=== PATIENT | female | born 1970 | race Caucasian/White ===

== ENCOUNTER 2020-07-02 16:16 | Emergency (ER) | payer OTHER ==
[~2020-07-02] VITALS: Ht 162.6 cm; Wt 90.7 kg
--- NOTE | ~2020-07-02 | EMS ---
[place] [address] EMS Patient Care Report Name: JAQUAN VAZQUEZ [id number] Admission: 07/02/20 Attend Phys: Discharge: 07/02/20 Date of : 70 Report #: [id number] THIS REPORT FOR: //name// Report Transmitted: 07/05/2020 20:19 EMS Care Summary [facility] Incident [id number] @ 07/02/2020 15:26 Incident Location [address] [place] [address] Patient JAQUAN VAZQUEZ Female, 50 Years 1970 Patient Address [address] [place] [address] Patient History Seizures, Patient Allergies No known allergies, Patient Medications Gabapentin, Meloxicam, Chief Complaint Altered mental status Disposition Transported [place] Dispatch Reason Stroke/CVA Trans[place] [facility] [place] N[place] Dispatch: [facility] was dispatched for a female patient with difficulty speaking. Med 1 copied tones and went en route emergent. Chief Complaint: Med 1 arrived on scene to find the [place] [address] EMS Patient Care Report Name: AJQUAN VAZQUEZ [facility] [id number] Admission: 07/02/20 Attend Phys: Discharge: 07/02/20 Date of : 70 Report #: [id number] bed. Patient is alert and does not appear to be in any distress or discomfort. Patient is alert when stimulated by EMS, but is unable to follow commands. Patient is incontinent to urine and bowel. Patient is unable to sit up without assistance and is unable to sinker winder using her right hand. Patient has slight right sided facial droop. Positive [place] and MEND exam. History of present illness/MISSY: Family states the patient has a history of seizures and they ???just thought the patient was postictal.??? Family states the patient also has a history of drug use. No drugs or alcohol were found around the patient while on scene. Patients family states the last known well was approx. at 10/11 P.M. the night before. Assessment: Airway: Clear, patent, and self maintained. Breathing: Clear, and equal bilaterally. Non labored respirations. Circulation: Skin is pink, warm, and dry. Strong radial pulses. Disability: A&OX0, GCS 9. Alert to painful/verbal stimuli. Exposures: No life threats were found. See ???assessments??? tab for further. Reason for ambulance: Patient was found by family, difficulty talking. Requesting EMS treatment and transport to [facility]. Treatments: ALS assessment. 12 lead EKG showing normal sinus rhythm. Two IV attempts, unsuccessful. 1mg Narcan IN. IO left tibia successful. 40mg Lidocaine IO. ETCO2 nasal cannula showing non obstructed waveforms. Vitals monitored throughout transport. See ???flowchart??? for further. Summary: With the assistance of EMS, and fire the patient was placed onto the cot, secured in place and placed into the ambulance for transport. The patient was placed onto the monitor and IV???s were attempted. The patient was placed onto ETCO2 nasal cannula at 2 liters. Med 1 went en route emergent to [facility]. The patient was given 1mg Narcan IN with no patient change. An IO was performed in the left tibia with 40mg Lidocaine, patient had a slight grimace to the flushing of the IO. Throughout transport, the patient became only responsive to painful stimuli. Patient maintained a patent and self maintained airway. Radio report was given and a stroke activation was made with no further questions or orders received. Med 1 arrived at destination where the patient was taken to CT and was sheet transferred onto the scan. Report was given and signatures and paperwork were received. Med 1 returned back in service. Initial Vitals @15:56P: 65,R: 18,EtCO2: 24,SpO2: 98, @16:03P: 64,R: 21,BP: 140/68,EtCO2: 19,SpO2: 99, @16:13P: 66,R: 23,EtCO2: 26,SpO2: 99, [place] [address] EMS Patient Care Report Name: JAQUAN VAZQUEZ Room: [facility] Flores#: [id number] Admission: 07/02/20 Attend Phys: Discharge: 07/02/20 Date of : 70 Report #: [id number] @16:18P: 69,R: 20,BP: 139/100,EtCO2: 26,SpO2: 98, @16:08P: 65,R: 21,BP: 139/97,EtCO2: 23,SpO2: 100, @16:23R: 20,GCS: 8,EtCO2: 25, @15:49P: 65,BP: 141/89,GCS: 8,SpO2: 96, @15:32R: 18,BP: 150/84,GCS: 9,SpO2: 98,Revised Trauma: 11, Assessments @15:32MENTAL:Confused,Other,SKIN:HEENT:Head/Face: Facial Droop,LUNG SOUNDS:ABDOMEN:PELVIS//GI:Pelvis GUOther,Incontinence,EXTREMITIES:Right Arm: Weakness,Right Leg: Weakness,Capillary Refill: Right Upper: < 2 Sec,PULSE:Radial: 2+ Normal,NEURO:Facial Droop,Other,Weakness Right-Sided,@15:55MENTAL:Confused,Other,SKIN:HEENT:Head/Face: Facial Droop,LUNG SOUNDS:ABDOMEN:PELVIS//GI:EXTREMITIES:Right Arm: Weakness,Right Leg: Weakness,Capillary Refill: Right Upper: < 2 Sec,PULSE:Radial: 2+ Normal,NEURO:Facial Droop,Other,Weakness Right-Sided, Impression Overdose - Unspecified Procedures @15:4912-Lead ECGResponse: UnchangedSucceeded@16:00Narcan - 1 Milligrams (mg) - IntranasalResponse: Unchanged@15:50Saline Lock 0cc (20 ga) Site: Antecubital-LeftResponse: UnchangedFailed@15:53Saline Lock 0cc (20 ga) Site: Antecubital-RightResponse: UnchangedFailed@16:05Normal Saline (.9% NaCl) 100cc (EZ-IO (Blue 25mm)) Site: SM-Ioumk-Kxma ProximalResponse: UnchangedSucceeded@15:32ALS AssessmentResponse: UnchangedSucceeded@16:05Lidocaine - 40 Milligrams (mg) - Intraosseous (IO)Response: Unchanged@15:51Oxygen FlowRate: 2 Device: CO2 Nasal Cannula Response: UnchangedSucceeded Timeline 15:23,Call Received 15:26,Dispatched 15:28,En Route 15:30,On Scene 15:31,At Patient 15:32,ALS Assessment,Response: UnchangedSucceeded, 15:32,BP: 150/84 M,PULSE: ,RR: 18 R,SPO2: 98 Ox,ETCO2: ,BG: ,PAIN: ,GCS: 9, 15:49,12-Lead ECG,Response: UnchangedSucceeded, 15:49,BP: 141/89 M,PULSE: 65,RR: R,SPO2: 96 Ox,ETCO2: ,BG: ,PAIN: ,GCS: 8, 15:50,Saline Lock 0cc 20 ga Site: Antecubital-Left,Response: UnchangedFailed, 15:50,Depart Scene 15:51,Oxygen FlowRate: 2 Device: CO2 Nasal Cannula Response: UnchangedSucceeded, 15:53,Saline Lock 0cc 20 ga Site: Antecubital-Right,Response: UnchangedFailed, 15:56,BP: / M,PULSE: 65,RR: 18 R,SPO2: 98 Ox,ETCO2: 24 ,BG: ,PAIN: ,GCS: , 16:00,Narcan - 1 Milligrams (mg) - Intranasal,[place]: [place] [address] EMS Patient Care Report Name: JAQUAN VAZQUEZ [facility] [id number] Admission: 07/02/20 Attend Phys: Discharge: 07/02/20 Date of : 70 Report #: [id number] 16:03,BP: 140/68 M,PULSE: 64,RR: 21 R,SPO2: 99 Ox,ETCO2: 19 ,BG: ,PAIN: ,GCS: , 16:05,Normal Saline (.9% NaCl) 100cc EZ-IO (Blue 25mm) Site: GZ-Mvpze-Pblx Proximal,Response: UnchangedSucceeded, 16:05,Lidocaine - 40 Milligrams (mg) - Intraosseous (IO),Response: Unchanged 16:08,BP: 139/97 M,PULSE: 65,RR: 21 R,SPO2: 100 Ox,ETCO2: 23 ,BG: ,PAIN: ,GCS: , 16:13,BP: / M,PULSE: 66,RR: 23 R,SPO2: 99 Ox,ETCO2: 26 ,BG: ,PAIN: ,GCS: , 16:18,BP: 139/100 M,PULSE: 69,RR: 20 R,SPO2: 98 Ox,ETCO2: 26 ,BG: ,PAIN: ,GCS: , 16:23,BP: / M,PULSE: ,RR: 20 R,SPO2: Ox,ETCO2: 25 ,BG: ,PAIN: ,GCS: 8, 16:24,At Destination 17:15,Call Closed Disclaimer v1.1 Copyright 2020 [employer] This EMS Care Summary contains data elements from the applicable legal record (which may be displayed differently). It is designed to provide pertinent information for the following purposes: continuity of care, clinical quality, and state data reporting. The complete legal record is available to ED staff and administrators of the receiving hospital in [employer]'s Patient Tracker. All data is provided "as is."
[2020-07-02 16:38] LABS: HEMATOCRIT 44.2 % (37.0-47.0); MCH 31.3 pg (26.0-34.0); MCHC 33.8 g/dL (28.0-37.0); MCV 92.3 fL (80.0-100.0); MPV 7.7 fl. (7.2-11.1); NUCLEATED RBCS 0 /100WBC; PLATELET COUNT* 248 thou/uL (150-400); RBC 4.79 mil/uL (4.20-5.00); RDW-CV 14.9 % (10.5-14.5); WBC 16.6 thou/uL (4.0-11.0)
[2020-07-02 16:46] LABS: CALCIUM 9.1 mg/dL (8.5-10.1); CREATININE 0.8 mg/dL (0.6-1.3); POTASSIUM 3.8 mmol/L (3.5-5.1)
[2020-07-02 16:52] LABS: APTT 22.9 Seconds (25.0-31.3); PROTIME 10.8 Seconds (9.20-11.50)
[2020-07-02 16:54] LABS: ALBUMIN 3.7 g/dL (3.4-5.0); TOTAL BILIRUBIN 0.5 mg/dL (<0.1-1.0)
[2020-07-02 17:28] LABS: ABSOLUTE LYMPHOCYTES 1.5 thou/uL (0.8-5.3); ABSOLUTE MONOCYTES 0.2 thou/uL (0.0-1.2); ABSOLUTE NEUTROPHILS 14.9 thou/uL (1.6-8.1); PLATELET ESTIMATE ADEQUATE
[2020-07-02 17:35] VITALS: BP 134/106
--- NOTE | 2020-07-03 10:19 | EKG ---
[place] [address] ELECTROCARDIOGRAM REPORT Name: JAQUAN VAZQUEZ Room: [facility]#: [id number] Admission: 07/02/20 Attend Phys: Discharge: 07/02/20 Date of : 70 Date of Service: 07/02/20 170 Report #: [id number] THIS REPORT FOR: //name// [facility] ED Test Date: 2020-07-02 Test Time: 17:07:10 Pat Name: JAQUAN VAZQUEZ Department: Room: Gender: F Press Catcher: ESTELITA : 1970 Requested By: Miguel Angel Ricardo Order Number: [id number] MD: Stanley Mayorga Measurements Intervals [place] Rate: 105 P: 42 IA: 160 QRS: 21 QRSD: 69 T: 32 QT: 375 QTc: 496 Interpretive Statements Sinus tachycardia Probable left atrial enlargement Borderline repolarization abnormality Borderline prolonged QT interval No previous ECG available for comparison Electronically Signed On 07-03-2020 10:18:52 CDT by Stanley Mayorga [email or web address] <ELECTRONICALLY SIGNED> By: Stanley Mayorga MD, [facility] 07/03/20 1018 1707 1707 Stanley Mayorga MD, [facility] /EPI
== END 2020-07-02 17:35 | disposition short-term general hospital (02) ==
LOC: M.ERS 16:16
PROVIDERS: Family Medicine
DX: I63.9 Cerebral infarction, unspecified (principal); J96.90 Respiratory failure, unspecified, unspecified whether with hypoxia or hypercapnia

== ENCOUNTER 2020-10-09 22:24 | Inpatient (IN) | payer OTHER ==
[~2020-10-09] VITALS: Ht 172.7 cm; Wt 86.6 kg
[2020-10-09 22:27] VITALS: BP 137/91
[2020-10-09] MEDS ORDERED: PERCOCET 10-321 EAC1 PO (22:33)
[2020-10-09] MEDS ORDERED: ASA81BEC PO (22:33)
[2020-10-09] MEDS ORDERED: ATORVASTATIN CA80 MG PO (22:33)
[2020-10-09] MEDS ORDERED: NEURONTIN300 MG PO (22:34)
[2020-10-09] MEDS ORDERED: BACLOFEN 10MG T10 MG PO (22:34)
[2020-10-09] MEDS ORDERED: VENLAFAXINE HC150 MG PO (22:35)
[2020-10-09] MEDS ORDERED: ELIQUIS5 MG PO (22:35)
[2020-10-10 01:31] LABS: ABSOLUTE BASOPHILS 0.1 thou/uL (0.0-0.2); ABSOLUTE EOSINOPHILS 0.4 thou/uL (0.0-0.7); ABSOLUTE LYMPHOCYTES 2.6 thou/uL (0.8-5.3); ABSOLUTE MONOCYTES 0.7 thou/uL (0.0-1.2); ABSOLUTE NEUTROPHILS 5.4 thou/uL (1.6-8.1); BASOPHILS 1.4 %; EOSINOPHILS 4.4 %; HEMATOCRIT 42.9 % (37.0-47.0); HEMOGLOBIN 13.5 gm/dL (12.0-15.0); LYMPHOCYTES 28.1 %; MCH 27.6 pg (26.0-34.0); MCHC 31.5 g/dL (28.0-37.0); MCV 87.6 fL (80.0-100.0); MONOCYTES 7.6 %; MPV 7.8 fl. (7.2-11.1); NUCLEATED RBCS 0 /100WBC; PLATELET COUNT* 338 thou/uL (150-400); POLYS 58.5 %; RBC 4.89 mil/uL (4.20-5.00); RDW-CV 17.1 % (10.5-14.5); WBC 9.2 thou/uL (4.0-11.0)
[2020-10-10 01:41] LABS: CALCIUM 9.3 mg/dL (8.5-10.1); CREATININE 0.9 mg/dL (0.6-1.3); POTASSIUM 3.7 mmol/L (3.5-5.1)
[2020-10-10 01:44] LABS: APTT 25.1 Seconds (25.0-31.3); INR 1.1; PROTIME 11.7 Seconds (9.20-11.50)
[2020-10-10 01:46] LABS: ALBUMIN 3.2 g/dL (3.4-5.0); TOTAL BILIRUBIN 0.2 mg/dL (<0.1-1.0); TOTAL PROTEIN 7.3 g/dL (6.4-8.2)
[2020-10-10 02:27] LABS: URINE BILIRUBIN NEGATIVE (Negative); URINE BLOOD 1+ (Negative); URINE COLOR YELLOW; URINE GLUCOSE-RANDOM NEGATIVE (Negative); URINE KETONES TRACE (Negative); URINE LEUKOCYTES-REFLEX 1+ (Negative); URINE PROTEIN NEGATIVE (Negative); URINE SPECIFIC GRAVITY 1.025 (1.005-1.030); URINE UROBILINOGEN 0.2 E.U./dl (0.2-1.0)
[2020-10-10 02:29] LABS: URINE CLARITY SL CLOUDY; URINE NITRITE-REFLEX POSITIVE (Negative)
[2020-10-10 02:38] LABS: AMORPHOUS URATES Moderate /LPF (None Seen); BACTERIA-REFLEX >30 Many /HPF (None Seen); CASTS None Seen /LPF (None Seen); MUCUS 4-6 Moderate strn/LPF (None Seen); SQUAMOUS 0-3 Few /LPF (0-3); URINE WBC-REFLEX >25 Many /HPF (0-5); WBC CLUMPS Few (None Seen)
[2020-10-10 07:40] VITALS: BP 136/91
[2020-10-10 13:15] VITALS: BP 120/83
[2020-10-10 14:57] VITALS: BP 128/66
[2020-10-10 16:00] VITALS: BP 134/85
--- NOTE | 2020-10-10 16:17 | EKG ---
[place] [address] ELECTROCARDIOGRAM REPORT Name: JAQUAN VAZQUEZ Room: [address] ADM IN [facility].#: [id number] Admission: 10/10/20 Attend Phys: Jeff Conteh Discharge: Date of : 70 Date of Service: 10/10/20 0112 Report #: [id number] THIS REPORT FOR: //name// [facility] ED Test Date: 2020-10-10 Test Time: 01:12:45 Pat Name: JAQUAN VAZQUEZ Department: Room: [facility] Gender: F Hand Nailer: ESTELITA : 1970 Requested By: Nancy Moreno Order Number: [id number] MD: Jesus Alberto Vieira Measurements Intervals [place] Rate: 79 P: 28 MI: 182 QRS: 5 QRSD: 92 T: 48 QT: 395 QTc: 453 Interpretive Statements Sinus rhythm Compared to ECG 07/02/2020 17:07:10 Sinus tachycardia no longer present Electronically Signed On 10-10-2020 16:17:39 CDT by Jesus Alberto Vieira [email or web address] <ELECTRONICALLY SIGNED> By: Jesus Alberto Vieira MD, [facility] 10/10/20 1617 0112 0112 Jesus Alberto Vieira MD, [facility] /EPI
[2020-10-10 19:30] VITALS: BP 163/73
[2020-10-11] VITALS (7 sets, daily range): BP systolic 114–162; BP diastolic 64–88
[2020-10-11 06:00] LABS: HEMATOCRIT 39.5 % (37.0-47.0); HEMOGLOBIN 12.8 gm/dL (12.0-15.0); MCH 27.8 pg (26.0-34.0); MCHC 32.4 g/dL (28.0-37.0); MCV 85.8 fL (80.0-100.0); MPV 8.1 fl. (7.2-11.1); RBC 4.61 mil/uL (4.20-5.00); WBC 7.3 thou/uL (4.0-11.0)
[2020-10-11 06:10] LABS: CALCIUM 9.1 mg/dL (8.5-10.1); CREATININE 0.6 mg/dL (0.6-1.3); POTASSIUM 3.3 mmol/L (3.5-5.1)
[2020-10-12 01:23] VITALS: BP 139/79
[2020-10-12 04:43] VITALS: BP 126/84
[2020-10-12 08:00] VITALS: BP 132/77
[2020-10-12] MEDS ORDERED: CEFDINIR300 MG PO (09:54)
[2020-10-12 12:22] VITALS: BP 132/77
== END 2020-10-12 13:05 | disposition home or self-care (01) | DRG 690 ==
LOC: M.ERS 22:24 → M.TBA-ER 10-10 03:47 → M.ERS 10-10 03:47 → M.TBA-ER 10-10 05:46 → M.2W 10-10 13:40
PROVIDERS: Family Medicine; Personal Emergency Response Attendant; ADMIT Internal Medicine; ATTEND Internal Medicine
DX: N39.0 Urinary tract infection, site not specified (principal); I69.351 Hemiplegia and hemiparesis following cerebral infarction affecting right dominant side; E86.0 Dehydration; M79.671 Pain in right foot; R31.9 Hematuria, unspecified; B96.20 Unspecified Escherichia coli [E. coli] as the cause of diseases classified elsewhere; Z20.822 Contact with and (suspected) exposure to COVID-19; I69.320 Aphasia following cerebral infarction; Z79.899 Other long term (current) drug therapy; Z79.01 Long term (current) use of anticoagulants